=== PATIENT | female | born 1970 | race Caucasian/White ===

== ENCOUNTER 2016-06-19 09:28 | Observation (INO) | payer BC ==
[2016-06-17 10:24] VITALS: BMI 28.3
--- NOTE | 2016-06-19 06:15 | HP ---
DATE OF ADMISSION: Chief complaint is severe nasal stuffiness. HISTORY OF PRESENT ILLNESS: This patient is a pleasant 46-year-old female who was recently seen in my office complaining of having extreme difficulty breathing through her nose and snoring at night and also during the day time. In addition to this, the patient has a history of asthma. She states that she has had asthma since she was approximately 18 years ago. She is not so much concerned about snoring but mainly is concerned about the fact that it is difficult for her to breathe during the day and even at night. She has a history of allergic rhinitis and is currently on Singulair and Autumn, but this does not seem to help with the nasal stuffiness. She denies any use of rumi-osb-kptwvkg nasal spray such as Afrin or Gama-Synephrine. At the time that she was seen in my office, clinical examination of the nose revealed the patient had severe nasal septal deviation to the left with bilateral compensatory hypertrophy of the inferior turbinates, hypertrophy of the maxillary crest, deformity of the perpendicular plate of the ethmoid bone and there was noted to be a vomerine spur noted posteriorly on the left side. All of these factors contribute to significant bilateral obstruction. It was recommended that the patient undergo a Kimmy septoplasty with bilateral partial resection of the inferior turbinates under general anesthesia and she will be placed in the hospital for 23-hours hopefully in the observation unit. Past medical history reveals she has no known allergies to medications. Previous surgeries include removal of various skin tags and moles from her skin, D&C and C-sections. She is 4 para, ( ) , 1 miscarriage, 1 . She has also had extraction of wisdom teeth and a D&C. There is no history of asthma, diabetes mellitus, or hypertension. Review of systems is completely unremarkable. PHYSICAL EXAMINATION: This patient is a very pleasant 46-year-old female who is somewhat anxious but is alert and cooperative. HEENT EXAMINATION: Patient is normocephalic. Tympanic membranes are normal. Middle ear spaces are free of any fluid or infection. Pupils equal, round, and reactive to light and accommodation. Extraocular movements are within normal limits. Intranasal examination is as described above with severe nasal septal deviation, hypertrophy of the maxillary crest, bilateral hypertrophy of the inferior turbinates, deformity of the perpendicular plate of the ethmoid bone and vomerine spur noted posteriorly. Examination of oropharynx, palpation of the neck, cranial nerves 2 through 12 and remainder of the head and neck exam is unremarkable. CHEST/CARDIOVASCULAR: Both lung mortensen are clear to percussion and auscultation. Patient is in regular sinus rhythm. S1 and S2 are present without any murmurs, S3s or S4s. Peripheral pulses are bilaterally symmetrical and within normal limits. ABDOMEN: There is no evidence of any masses, megaly or tenderness. The abdomen is soft. Skin is unremarkable. Musculoskeletal and neurological are within normal limits. PELVIC/RECTAL EXAM: The pelvic/rectal exam is deferred at this time because the patient has this done on a regular basis at her family physician's office. The remainder of the physical exam is essentially unremarkable. IMPRESSION: Severe nasal septal deviation with severe bilateral hypertrophy of inferior turbinates. PLAN: The patient is scheduled to undergo [place] septoplasty with bilateral partial resection of the inferior turbinates under general anesthesia. ATTENTION RNS IN THE PRESURGICAL AREA: The only presurgical prophylactic antibiotics that I have ordered are 2 grams of Ancef IV to be given once an intravenous line has been established. If any other prophylactic antibiotics have been ordered in my name, they should be canceled, returned to pharmacy, and the patient's account should be credited appropriately. Again, the only prophylactic antibiotics that I wish this patient to receive is 2 grams of Ancef IV in the presurgical area. In addition to this, I have ordered 1000 mg of Ofirmev IV, again to be given in the presurgical area once an intravenous line has been established. These are the only 2 presurgical medications that I have ordered. I have explained the operation/procedure to the patient, including the risks, benefits, side effects, alternative therapies (including not receiving the proposed treatment or service), the likelihood of the patient achieving his/her goals, and potential recuperation problems for the procedure/sedation/analgesia, as well as any blood products, if indicated. I also explained to the patient the risks, benefits, and side effects of the alternatives, as well as the risks related to not receiving the proposed procedure, care treatment or services.
--- NOTE | 2016-06-19 06:44 | DS ---
DATE OF ADMISSION: 06/19/2016 DATE OF DISCHARGE: POSTOPERATIVE DISCHARGE INSTRUCTION SHEET 1. Please read/review all discharge instructions. 2. You may resume most normal light activities (however avoid any exercising such as running, cycling , etc.), a normal diet, and you may resume all presurgical medications except aspirin and Coumadin. Therefore, you may resume all of your medications such as, Advil, ibuprofen, Aleve, Motrin, asthma inhalers, atorvastatin, Wellbutrin XL, etc. You may also shower, shampoo your hair, and take baths as usual. Please avoid trying to blow your nose at all cost, doing so may cause bleeding. Instead it is best that you periodically sniff back and spit out any mucus or old dried blood that you find. Inside your nose Dr. Romero has advised you that there will be 2 plastic nasal tubes/splints that are designed to keep your septum, which was operated on, straight. As long as you periodically sniff back, you will be able to breathe through these tubes. Also if you have sneeze, you should do so with your mouth open and let the force of the sneeze come out through your mouth. Avoid all first and second hand tobacco smoke at all costs. A wood burner or fireplace is okay. It is not necessary that you run a humidifier in your home, but if you have one it is not going to hurt anything. If you should run a temperature, you may take any wrte-vpv-vogacwi pain reliever such as Tylenol, Motrin, ibuprofen, Aleve, Advil, etc. In addition to this, some patient's will experience generalized body aches/muscle aches involving the muscles of the abdomen, thighs or calves of the legs, which may occur several days after the surgery and last for several days. This discomfort will generally resolve without any type of treatment, however, you may use any gqgc-fau-eukohae pain reliever such as Tylenol, Motrin, etc. or you may take one of your prescribed pain medication tablets, [place] 5/325 mg, as prescribed. The pain, which you will experience with respect to your nose will generally be moderate unless you accidentally bump your nose. The nursing staff will give you several oval eye patches and instruct you on how to make a small mustache dressing which you may use in case you have excessive nasal drainage. Certainly you should avoid and stay off of work and away from school until your first visit with Dr. Romero and his office. Also you went to limit the number of visitors to your home because this is the middle of the flu/cold season and it would be most uncomfortable for you to strip picker a head cold during this time. As mentioned in the office, although there will be no packing in your nose, because this will be removed before you leave the hospital, there will be 2 soft plastic tubes nose and these can be uncomfortable, but they do not tend to be very painful. The bottom line is that they tend to be more annoying as opposed to being actual painful. The good news is those will be removed in my office on the day that you come to the office and it is a painless procedure and there is no bleeding associated with it. Once those are removed, you will notice the marked improvement in your breathing through both sides of your nose immediately. After those plastic tubes are removed, then we will instruct you how to irrigate your nose with a special solution 2 to 3 times daily in an effort to remove all dried blood, scabs and to promote healing. It normally takes the nose approximately 4 weeks to heal after this type of surgery. In addition to your prescription for your pain medication, [place] 5/325 mg tablets, you will also receive a prescription for oral antibiotic Omnicef capsules 300 mg and you should take this as prescribed, 2 capsules each morning, with or without food until they are completely gone. This will reduce the risk of you developing any type of sinus infection. Minor bleeding during your recovery is to be expected. Dr. Romero will be calling your home on Wednesday06/21/2016 between 3 p.m. and approximately 7 p.m. in order to talk to you about any problems or concerns you may be having after your surgery. Finally, it is very important that you drink as much fluid as you can because this will tend to help your body rid itself of all of the anesthesia medication and gases. The reason for the muscle aches after your surgery sometimes it because of one of the anesthetic agents that is given to you by the anesthesia department during your surgery, but again, these symptoms resolve without any treatment.
[~2016-06-19 09:28] MED LIST: ATORVASTATIN 20 MG TAB PO SCH; NALOXONE 0.4 MG/ML 1 ML VIAL IV PRN; Pre Op ABX Message 1 EACH MISC MISCELLANE ONE
[2016-06-19] MEDS ORDERED: LIDOCAINE 1% 20 ML VIAL (10MG/ML) FOR IV START SQ ONE (10:18)
[2016-06-19] MEDS ORDERED: MIDAZOLAM 2 MG/2 ML VIAL IV PRN (10:31)
[2016-06-19] MEDS ORDERED: SCOPOLAMINE 1.5MG/72HR PATCH TRANSDERM ONE (10:31)
[2016-06-19] MEDS ORDERED: DEXAMETHASONE SOD PHOSPHATE 10 MG/ML 1 ML VIAL IV ONE (10:31)
[2016-06-19] MEDS ORDERED: LIDOCAINE 1% 20 ML VIAL (10MG/ML) FOR IV START INTRADERMA PRN (10:31)
[2016-06-19] MEDS: ONDANSETRON 4 MG/2 ML VIAL IVP ONE ×2 (10:40→14:59)
[2016-06-19] MEDS ORDERED: LACTATED RINGERS 1,000 ML IV SCH ×2 (10:45→13:00)
[2016-06-19] MEDS ORDERED: ACETAMINOPHEN IV (For NPO) 1,000 MG in EMPTY BAG 1 BAG IVPB ONE (10:50)
[2016-06-19] MEDS: ceFAZolin 2 GM in SODIUM CHLORIDE 0.9% 100 ML IVPB ONE ×2 (11:13→11:20)
[2016-06-19] MEDS ORDERED: OXYMETAZOLINE 0.05% NASL SPRAY 15 ML MISCELLANE ONE (11:35)
[2016-06-19] MEDS ORDERED: LIDOCAINE 1%-EPI 1:100,000 20 ML VIAL SUBMUCOSAL ONE ×2 (11:36)
[2016-06-19] MEDS ORDERED: BACITRACIN 500 UNIT/GM OINT 28.4 GM TUBE TOPICAL ONE (11:36)
[2016-06-19] MEDS ORDERED: ALPRAZolam 0.5 MG TAB PO PRN (13:00)
[2016-06-19] MEDS ORDERED: PROCHLORPERAZINE 10 MG TAB PO PRN (13:00)
[2016-06-19] MEDS ORDERED: LACTATED RINGERS 1,000 ML IV ONE ×2 (13:43→16:48)
[2016-06-19] MEDS: LABETALOL SYRINGE 5 MG/ML IVP ONE ×2 (14:49→15:49)
[2016-06-19] MEDS: HYDROmorphone 1 MG/ML 1 ML SYRINGE IVP PRN ×3 (14:59→16:29)
[2016-06-19] MEDS: ENALAPRILAT 1.25 MG/ML 1 ML VIAL IVP STA ×2 (15:12→17:22)
[2016-06-19] MEDS ORDERED: ONDANSETRON 4 MG/2 ML VIAL IVP PRN ×2 (16:00→19:42)
[2016-06-19] MEDS ORDERED: hydrALAZINE HCL 20 MG/ML 1 ML VIAL IVP ONE (16:31)
[2016-06-19] MEDS: SYMBICORT 160-4.5 MCG INHALER INHALATION SCH ×2 (16:39→19:30)
[2016-06-19] MEDS: buPROPion XL 150 MG TAB.ER.24H PO SCH (17:22)
[2016-06-19] MEDS: HYDROmorphone PCA 5 MG/25 ML SYRINGE IV PRN (17:53)
[2016-06-19] MEDS: ACETAMINOPHEN IV (For NPO) 1,000 MG in EMPTY BAG 1 BAG IVPB SCH (18:49)
[2016-06-19] MEDS: ceFAZolin 2 GM in SODIUM CHLORIDE 0.9% 100 ML IVPB SCH (18:56)
[2016-06-19] MEDS ORDERED: ATORVASTATIN 20 MG TAB PO SCH (21:00)
[2016-06-19] MEDS ORDERED: TEMAZEPAM 30 MG CAP PO PRN (22:00)
[2016-06-20] MEDS: ACETAMINOPHEN IV (For NPO) 1,000 MG in EMPTY BAG 1 BAG IVPB SCH ×2 (00:09→06:40)
[2016-06-20] MEDS: ceFAZolin 2 GM in SODIUM CHLORIDE 0.9% 100 ML IVPB SCH ×2 (00:10→08:04)
[2016-06-20 07:47] VITALS: TEMP 98.3
[2016-06-20] MEDS ORDERED: HYDROcodone/APAP 5-325MG 1 EACH TAB PO PRN (07:57)
[2016-06-20] MEDS: buPROPion XL 150 MG TAB.ER.24H PO SCH (08:04)
[2016-06-20] MEDS: SYMBICORT 160-4.5 MCG INHALER INHALATION SCH (08:22)
[2016-06-20] MEDS ORDERED: DEXAMETHASONE SOD PHOS (MDV) 100 MG/10 ML VIAL ONE (11:13)
[2016-06-20] MEDS ORDERED: LIDOCAINE 1% INJ 10MG/ML (20 ML MDV) ONE (11:13)
[2016-06-20] MEDS ORDERED: PROPOFOL 10 MG/ML 20 ML VIAL IV ONE (11:13)
[2016-06-20] MEDS ORDERED: fentaNYL (PF) 50 MCG/ML 2 ML AMP ONE (11:13)
[2016-06-20] MEDS ORDERED: MIDAZOLAM 2 MG/2 ML VIAL ONE (11:13)
[2016-06-20] MEDS ORDERED: SUCCINYLCHOLINE CHLORIDE 100 MG/5 ML SYR IV ONE (11:13)
[2016-06-20 12:17] VITALS: RESP 14
[2016-06-20 12:20] VITALS: PULSE 108
[2016-06-20] MEDS: HYDROmorphone PCA 5 MG/25 ML SYRINGE IV PRN (13:04)
[2016-06-20] MEDS ORDERED: hydrALAZINE HCL 20 MG/ML 1 ML VIAL IVP STA (13:12)
[2016-06-20 15:03] VITALS: BP 160/88
--- NOTE | 2016-06-21 20:32 | OP ---
DATE OF SERVICE: 06/19/2016 SURGEON: SORAYA ROLLE MD COLOR MAKING SUPERVISOR: PREOPERATIVE DIAGNOSES: Severe nasal septal deviation with severe bilateral hypertrophy of the inferior turbinates. POSTOPERATIVE DIAGNOSES: Severe nasal septal deviation with severe bilateral hypertrophy of the inferior turbinates. OPERATION: Kimmy septoplasty with bilateral partial resection of the inferior turbinates. ANESTHESIA: General anesthesia. ESTIMATED BLOOD LOSS: Less than 75 mL. SPECIMENS REMOVED: COMPLICATIONS: None. OPERATIVE FINDINGS: DESCRIPTION OF PROCEDURE: The patient was placed on operating table in the supine position and after uneventful induction and endotracheal intubation, satisfactory general anesthesia was obtained. Next, patient's head was draped in the usual and customary fashion. Following this, both nasal chambers were packed with Cottonoids which had been saturated with Afrin nasal spray and these were placed inferior to the right and left inferior turbinates respectively to achieve maximum vasoconstriction. These cottonoids were removed after a period of approximately 5 minutes. Inspection revealed the patient had significant subluxation of the anterior cartilage off of the maxillary crest to the left, severe hypertrophy of the maxillary crest itself with the bony extensions/wings on the maxillary crest, significant deformity of the perpendicular plate of the ethmoid bone and finally a vomerine spur was noted posteriorly on the left side. Therefore the membrane portion of the septum was grasped with a columellar clamp and pulled anteriorly, thus exposing the membrane portion of the septum. Next, approximately 1 mL of 1% Xylocaine with epinephrine was infiltrated in a submucosal plane into the soft tissues of the membrane portion of the septum down to the level of the nasal spine. While waiting for the anesthetic to take effect, the nasal hairs were trimmed with a pair of angled sharp Fritz scissors. Next, again with a columellar clamp attached, the caudal end of the cartilaginous portion of the septum was identified and an incision was made approximately 4 mm anterior to the caudal end of the cartilage portion of the septum beginning at the dome of the nose working down to the floor of the nose using a #15 scalpel and cutting mucous membrane only. Next, the soft tissues were dissected off of the caudal end of the anterior cartilage of the septum thus exposing the perichondrium. The perichondrium was then sharply incised using a [place] knife. This was the beginning of the so-called superior and posterior tunnels. The construction of the nose was done by elevating in a subperichondrial plane using the left angled [place] in a sweeping motion from superior to inferior and anterior to posterior working back towards and beyond the junction of the cartilage and the perpendicular plate of the ethmoid bone, which was significantly deformed. Having done this, the McEnty sharp end of the dissector was to incise the junction between the bony and cartilaginous portion of the septum and the crossover from the left side. The original incision was a so-called hemitransfixation incision and it had purposely been made on the left side of the membrane portion of the septum. Dissection was somewhat tedious because of apparent scar tissue and because of the extent of the deformities. After sharply incising the junction of the cartilage portion of the septum and the perpendicular plate of the ethmoid bone, the [place] was used to cross over to the opposite side, that is to say, the right side and it was there then by using a sweeping motion anterior to inferior and superior posterior that the entire submucoperichondrial and was dissected off of the posterior portion of the cartilage. Next, attention was directed toward correcting the cartilaginous and bony deformities. Columella clamp was removed and instead a small nasal speculum was inserted and again inspection of the deformities were as described above. Next, mucoperichondrial was incised sharply on the caudal end of the septum which had been exposed by the hemitransfixation incision using a combination of a [place] in a sweeping motion from anterior to posterior and superior to inferior. This was done quite easily. Care was taken because there appeared to be a small amount of scar tissue noted posteriorly. The submucoperiosteal elevation was carried out on both the right and left side back as far as the rostrum of the sphenoid bone and down to the level of the floor of the nose. Next, the cartilage portion of the septum was dislocated from the maxillary crest by cutting a 4 millimeters inferior strip from the most inferior aspect of the septum. Having done this, this allowed the septum to swing nicely out of the operating field, immediately one could see that there were so-called wings that had developed on the top of the left side and the right side of the bony portion of the septum. Therefore, it was decided to create inferior tunnels and this was accomplished by placing a sharp [place] into the piriform aperture and while hugging against the maxillary crest and in a sharp advancing motion a so-called inferior tunnel was treated by dissecting from anterior to posterior. This was done on the left side of the cartilage portion of the septum and again the so-called hemitransfixion patient was on the right side. Next, having freed inferior portion of the septum/inferior maxillary crest, this allowed the cartilage portion of the septum to swing to the right quite nicely. Once again an inferior tonsil was created just lateral to the maxillary crest, beginning at the anterior part of the nose and working posteriorly to the level of the perpendicular plate of the ethmoid. Having gained all of the second exposure one could see that there was significant wings, a direct result of deformity, that were partially obstructing the patient's airway. Therefore, using a 4 mm chisel and mallet these wings were taken down off of the maxillary crest. In addition to this, a 4 mm inferior strut which had been removed from the inferior most aspect of the cartilage portion of the maxillary cartilage and was discarded. The septum had initially been from the maxillary crest by sharply dividing Sharpey's fibers using a Kimmy knife. Next, the deformed portion of the perpendicular plate of the ethmoid was removed centrally using a pair of double acting bone biting Kerrisons. Care was taken to leave a portion of the perpendicular plate ethmoid superiorly and inferiorly. Next, a so-called vomerine spur was noted and using a 4 mm chisel and mallet this was disimpacted and subsequently was grasped with a straight Tabitha and given a slight twist which freed up this deformed portion of the bony septum. Several small tears were created in the mucous membrane and these were not closed and it was felt that they would be allowed to remain for any drainage. Having corrected all of these deformities this allowed the septum to swing back to the midline quite nicely. Next, attention was directed towards the partial resection of the inferior turbinate. This was done in the usual fashion. Initially first the right then the left inferior turbinate were clamped with medium curved Tabitha clamps which were placed as high as far as possible on the inferior turbinates and left in place for a period of 10 minutes to achieve maximum crushing effect of the turbinates themselves. Upon removing the curved hemostats, the portion of the turbinate to be resected was delineated by the crushed portion. Therefore, using a pair of double acting turbinectomy scissors, initially the right inferior turbinate was partially resected and subsequently the left underwent the same procedure that is to say, using the double acting bone biting turbinectomy scissors, the crushed portion of the inferior turbinate was removed. Having done this, this gave the patient an excellent airway. Furthermore, I also outfractured the remnant of the inferior turbinate bones on the right and left side. Hemostasis was obtained by combination of electrocautery and also a hemostatic powder which was sprayed into the patient's nose. One final inspection revealed the patient had achieved an excellent nasal airway, the so-called hemitransfixion incision was closed using a single 4-0 chromic suture in a running fashion. Next two 8 cm Xomed nasal Silastic nasal splints were placed in the right and left nasal chamber respectively along the floor of the nose. These were sewn to the membrane portion of the septum using a 3-0 silk suture on a straight George needle. Next, a pair of Merocel nasal tampons were inserted into the right and left nasal chambers respectively just lateral to the nasal splints. All of these insertions went on without any significant difficulty due to the patient's excellent airway now. At this point, the procedure was terminated. There were no intraoperative complications. Estimated blood loss less than 75 mL. Patient tolerated the procedure well and was returned to recovery room in satisfactory condition.
== END 2016-06-20 15:10 | disposition home or self-care (01) ==
LOC: OR 09:28 → 3OBS 16:14 → OR 19:54 → 3OBS 19:54
PROVIDERS: ADMIT Otolaryngology; ATTEND Otolaryngology
DX: J34.2 Deviated nasal septum (principal); J34.3 Hypertrophy of nasal turbinates; J30.9 Allergic rhinitis, unspecified
CPT/HCPCS: 94640; 94760; 81025; 30520; 30130 ×2; G0378 ×2; J2250; J0360 ×2; J1100 ×2; J0690 ×2; J2405; J2001; J3010; J1170 ×3; J0131; J0330; J2704; 96365; 96366; 96375

== ENCOUNTER → 2016-10-09 | Outpatient (CLI) | payer OTHER ==
--- NOTE | 2016-10-09 12:51 | CT ---
EXAMINATION TYPE: CT sinus wo con DATE OF EXAM: 10/09/2016 COMPARISON: NONE HISTORY: Patient complains of recurrent sinus infections and no sinus drainage since deviated septum surgery in June 2016. CT DLP: 673.[address] of the paranasal sinuses was performed in the axial and coronal planes. Bone and soft tissue settings are submitted. The paranasal sinuses demonstrate normal aeration and development. Postsurgical changes of left-sided medial maxillary antrectomy. Mucosal thickening is noted to involve the bilateral maxillary sinuses. Total thickening of the vario us ethmoid air cells. Partial ethmoidectomy changes suggested. Frontal sinuses are well aerated as is the sphenoid sinus. The osteal meatal units are patent bilaterally. The nasal septum is midline. No bony destructive changes are seen within the field of view. IMPRESSION: Chronic maxillary and ethmoidal sinusitis.
== END | disposition home or self-care (01) ==
LOC: RADCTMAIN 12:13
PROVIDERS: ATTEND Otolaryngology
DX: J32.0 Chronic maxillary sinusitis (principal); J32.2 Chronic ethmoidal sinusitis
CPT/HCPCS: 70486

== ENCOUNTER → 2018-03-09 | Outpatient (CLI) | payer OTHER ==
--- NOTE | 2018-03-09 12:59 | XR ---
EXAMINATION TYPE: XR chest 2V DATE OF EXAM: 03/09/2018 COMPARISON: NONE HISTORY: Dyspnea TECHNIQUE: Frontal and lateral views of the chest are obtained. FINDINGS: There is no focal air space opacity, pleural effusion, or pneumothorax seen. The cardiac silhouette size is within normal limits. The osseous structures are intact. There is bronchial wall thickening. IMPRESSION: Correlate for bronchitis, reactive airways disease. Follow-up as indicated.
== END | disposition home or self-care (01) ==
LOC: RADXRYALE 11:03
PROVIDERS: ATTEND Physician Assistant
DX: R06.00 Dyspnea, unspecified (principal)
CPT/HCPCS: 71046

== ENCOUNTER → 2018-09-20 | Outpatient (CLI) | payer BC ==
[2018-09-20 10:06] VITALS: BP 157/94; PULSE 52; RESP 20; TEMP 97.9; BMI 29.9
--- NOTE | 2018-09-20 10:52 | P.HPOB ---
History of Present Illness H&P Date: 09/20/18 Chief Complaint: The patient is here for her routine gynecologic exam and ma mmogram. This is a 48-year-old 113 with an LMP of 07/02/2018. She is status post tubal ligation. The patient is here to establish with this office. She states it has been about 10 years since her last pelvic exam. Her menstrual periods have become slightly irregular this past year. They have been about every 3 to 8 weeks. Currently, this is the longest she has gone without a period, about 11 weeks. She has occasional mild hot flashes. Review of Systems She is getting about 10 pounds over the last year. Respiratory: occasional asthma symptoms. She denies cardiac or G.I. problems. Past Medical History Past Medical History: Asthma, Hyperlipidemia Additional Past Medical History / Comment(s): SEASONAL ALLERGIES,. INDUCED CARDIOMYOPATHY 2007- TOTALLY RESOLVED. Chronic sinus problems. PAST PRODUCTION CONTROL EXPEDITER HISTORY: She has no history of STDs. One previous ectopic treated with methotrexate. Her last was delivered at 28 weeks because of maternal cardiomyopathy. PI with 2 pregnancies. History of Any Multi-Drug Resistant Organisms: None Reported Past Surgical History: Section, Tubal Ligation Additional Past Surgical History / Comment(s): D & C, ORAL SX UNDER ANESTHESIA. Nasal/sinus surgery. 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 - Past Family History Mother Family Medical History: No Reported History Additional Family Medical History / Comment(s): Maternal great aunt may have had breast cancer. Father Family Medical History: Hypertension Medications and Allergies Home Medications Medication Instructions Recorded Confirmed Type Atorvastatin [Lipitor] 40 mg PO DAILY 06/17/16 09/20/18 History Budesonide-Formot 160-4.5 Mcg 2 puff INHALATION RT-BID 06/17/16 09/20/18 History [Symbicort 160-4.5 Mcg Inhaler] Fexofenadine HCl [Autumn Allergy] 180 mg PO HS 06/17/16 09/20/18 History Ergocalciferol (Vitamin D2) 50,000 unit PO WEEKLY 05/14/19 05/14/19 History [Vitamin D2] Multivit with Calcium,Iron,Min 1 each PO 09/20/18 History [Women's Multivitamin] Allergies Allergy/AdvReac Type Severity Reaction Status Date / Time No Known Allergies Allergy Verified 09/20/18 09:47 Exam Vital Signs Temp Pulse Resp BP Pulse Ox 09/20/18 09:52 97.9 F 52 L 20 157/94 100 Intake and Output 09/19/18 09/20/18 09/20/18 22:59 06:59 14:59 Other: Weight 81.789 kg Height 5'5", weight 180 pounds, BMI 3.0. This is a well-developed well-nourished heavyset white female who is alert and oriented times 3 in no acute distress. HEENT: Within normal limits. NECK: Supple without mass or thyromegaly. CHEST AND LUNGS: Clear to auscultation. HEART: Regular rate and rhythm. BREASTS: Are without mass or discharge. AXILLARY EXAM: Negative for adenopathy. BACK: Negative for CVA tenderness. ABDOMEN: Soft, mildly obese, nontender, without palpable masses. PELVIC EXAM: Normal external genitalia. Cervix and vagina appear normal. There is no unusual discharge. There is no evidence of prolapse. The uterus is midposition, nongravid size and nontender. There are no palpable adnexal masses or tenderness. RECTAL EXAM: negative for mass or tenderness and is negative for occult blood. EXTREMITIES: Nontender. IMPRESSION: 1. 48-year-old female with one year of slight menstrual irregularity, probable perimenopause. 2. Normal gynecologic exam. 3. Elevated blood pressure. PLAN: 1. Pap smear was performed. 2. Self breast awareness was discussed with the patient. 3. Screening mammogram will be done today. 4. Osteoporosis prevention was discussed. I have stressed the importance of adequate calcium, vitamin D and regular exercise. Recommended amounts of calcium and vitamin D were also discussed. 5. She is aware of her blood pressure elevation today. I have recommended that she have her blood pressure checked on a regular basis and I have recommended that she check her own blood pressure on a regular basis. She will follow-up with her primary care provider for blood pressure elevations. 6.She was advised to return in one year for her annual well woman exam.
--- NOTE | 2018-09-20 13:08 | MM ---
Reason for exam: screening (asymptomatic). Baseline mammogram. History: Took hormonal contraceptives for 6 years. Physical Findings: Dr. Alvarez did breast exam. MG 3D Screening Mammo W/Cad Bilateral CC and MLO view(s) were taken. The breast tissue is heterogeneously dense. This may lower the sensitivity of mammography. No suspicious abnormality on the right breast. Left central middle depth asymmetry. These results were verbally communicated with the patient and result sheet given to the patient on 09/20/18. ASSESSMENT: Incomplete: need additional imaging evaluation, BI-RAD 0 RECOMMENDATION: Special view mammogram of the left breast.
--- NOTE | 2018-09-20 13:09 | MM ---
Reason for exam: additional evaluation requested from abnormal screening. History: Took hormonal contraceptives for 6 years. Physical Findings: Breast exam preformed at baseline screening. MG 3D Work Up W/Cad LT Spot compression CC view(s) were taken of the left breast. The breast tissue is heterogeneously dense. This may lower the sensitivity of mammography. The previously seen abnormality resolves on additional views and appears as fibroglandular tissue compatible with summation. There is no discrete abnormality. These results were verbally communicated with the patient and result sheet given to the patient on 09/20/18. ASSESSMENT: Negative, BI-RAD 1 RECOMMENDATION: Return to routine screening mammogram schedule for both breasts.
== END | disposition home or self-care (01) ==
LOC: WWCWWP 09:33
PROVIDERS: ATTEND Obstetrics & Gynecology
DX: Z12.31 Encounter for screening mammogram for malignant neoplasm of breast (principal); R92.8 Other abnormal and inconclusive findings on diagnostic imaging of breast
CPT/HCPCS: 77061; 77063; 77065; 77067

== ENCOUNTER → 2022-12-22 | Outpatient (CLI) | payer OTHER ==
--- NOTE | 2022-12-22 09:10 | US ---
EXAMINATION TYPE: US kidneys/renal and bladder DATE OF EXAM: 12/22/2022 COMPARISON: NONE CLINICAL INDICATION: Female, 52 years old with history of N17.9 KID FAILURE; CKD by bloodwork in September EXAM MEASUREMENTS: Right Kidney: 10.7x4.6x6.0 cm Left Kidney: 10.4x5.6x4.8 cm Right Kidney: dominant cyst at superior pole, difficult to appreciate: 2.6x2.7x2.7cm Left Kidney: wnl Bladder: wnl Bilateral Jets seen: Yes No nephrolithiasis or hydronephrosis. Dominant right renal superior pole simple cyst measuring up to 2.7 cm. No solid mass identified. Corticomedullary differentiation is maintained bilaterally. The uri nary bladder is anechoic. Bilateral ureteral jets are seen. Increased echogenicity of the visualized liver. technically challenging exam due to limited scanning windows IMPRESSION: 1. No hydronephrosis or nephrolithiasis. 2. Right renal simple cyst. 3. Findings suggestive of hepatic steatosis.
== END | disposition home or self-care (01) ==
LOC: RADUSWWP 08:23
PROVIDERS: ATTEND Family Medicine
DX: I12.9 Hypertensive chronic kidney disease with stage 1 through stage 4 chronic kidney disease, or unspecified chronic kidney disease (principal); N28.1 Cyst of kidney, acquired; N17.9 Acute kidney failure, unspecified; N18.9 Chronic kidney disease, unspecified; E83.52 Hypercalcemia
CPT/HCPCS: 76770

== ENCOUNTER → 2023-03-10 | Outpatient (CLI) | payer OTHER ==
[2023-03-10 12:31] VITALS: BP 148/89; PULSE 76; RESP 17; TEMP 98.3
--- NOTE | 2023-03-10 13:03 | P.HPOB ---
History of Present Illness H&P Date: 03/10/23 Chief Complaint: The patient is here for her routine gynecologic exam. This is a 52-year-old 0113 with an LMP of 2020. The patient is here to reestablish with this office. She was last seen here in 2019. She states her menstrual periods stopped in 2020. She did have hot flashes at that time and those have improved. She is without gynecologic complaints. She denies any postmenopausal bleeding. Review of Systems She has lost about 9 pounds over the past 4 years. She denies respiratory, cardiac, or GI problems. Past Medical History Past Medical History: Asthma, Hyperlipidemia, Hypertension, Renal Disease Additional Past Medical History / Comment(s): Chronic kidney disease. SEASONAL ALLERGIES, INDUCED CARDIOMYOPATHY 2007- TOTALLY RESOLVED. Chronic sin us problems. PAST DISTRICT MANAGER PRIMARY CARE SALES HISTORY: She has no history of STDs. One previous ectopic treated with methotrexate. Her last was delivered at 28 weeks because of maternal cardiomyopathy. PIH with 2 pregnancies. History of Any Multi-Drug Resistant Organisms: None Reported Past Surgical History: Section, Tubal Ligation Additional Past Surgical History / Comment(s): D & C, ORAL SX UNDER ANESTHESIA. Nasal/sinus surgery. 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 She has 2 autistic children and this has been stressful for her. - Past Family History Mother Family Medical History: No Reported History Additional Family Medical History / Comment(s): Maternal great aunt may have had breast cancer. Father Family Medical History: Hypertension Son(s) Additional Family Medical History / Comment(s): Autism. Daughter(s) Additional Family Medical History / Comment(s): Autism. Medications and Allergies Home Medications Medication Instructions Recorded Confirmed Type Budesonide-Formot 160-4.5 Mcg 2 puff INHALATION RT-BID 06/17/16 03/10/23 History [Symbicort 160-4.5 Mcg Inhaler] Fexofenadine HCl [Autumn Allergy] 180 mg PO HS 06/17/16 03/10/23 History Rosuvastatin [Crestor] 10 mg PO DAILY 03/10/23 03/10/23 History buPROPion SR [Wellbutrin SR] 150 mg PO DAILY 03/10/23 03/10/23 History traZODone HCL [Desyrel] 50 mg PO DIRECTED PRN 03/10/23 03/10/23 History Allergies Allergy/AdvReac Type Severity Reaction Status Date / Time No Known Allergies Allergy Verified 09/20/18 09:47 Exam Vital Signs Temp Pulse Resp BP Pulse Ox 03/10/23 12:03 98.3 F 76 17 148/89 97 Intake and Output 03/09/23 03/10/23 03/10/23 22:59 06:59 14:59 Other: Weight 77.564 kg Height 5 feet 5 inches, weight 171 pounds, BMI 28.5. This is a well-developed well-nourished white female who is alert and oriented times 3 in no acute distress. HEENT: Within normal limits. NECK: Supple without mass or thyromegaly. CHEST AND LUNGS: Clear to auscultation. HEART: Regular rate and rhythm. BREASTS: Are without mass or discharge. AXILLARY EXAM: Negative for adenopathy. BACK: Negative for CVA tenderness. ABDOMEN: Soft, nontender, without palpable masses. PELVIC EXAM: Normal external genitalia with minimal atrophy. Cervix and vagina appear normal with minimal atrophy. There is no unusual discharge. There is no evidence of prolapse. The uterus is midposition, nongravid size and nontender. There are no palpable adnexal masses or tenderness. RECTAL EXAM: Rectovaginal exam is negative for mass or tenderness and is negative for occult blood. EXTREMITIES: Nontender. IMPRESSION: 1. 52-year-old menopausal female with normal gynecologic exam. 2. Elevated blood pressure. PLAN: 1. Pap smear cotest was performed. 2. Self breast awareness was discussed with the patient. We have also discussed symptoms associated with inflammatory breast cancer. 3. Screening mammogram is due. The patient states she has an appointment later this month. The order slip was given to the patient for this. 4. Osteoporosis prevention was discussed. She states she is currently undergoing a workup for an elevated serum calcium level. She was told to discontinue calcium and vitamin D. She will further discuss the recommendations for calcium intake with the doctor managing her serum calcium levels. 5. She is aware of her elevated blood pressure. She states she was told to discontinue her blood pressure medication. She will check her own blood pressures at home on a regular basis and follow up with her PCP regarding blood pressure elevations. 6. She will discuss the need for colonoscopies with her PCP. She understands that we'll rectal cancer screening is generally recommended at her age. 7. She was advised to return in one year for her annual well woman exam.
== END ==
LOC: WWCWWP 11:29
PROVIDERS: ATTEND Obstetrics & Gynecology
DX: R03.0 Elevated blood-pressure reading, without diagnosis of hypertension (principal); I42.9 Cardiomyopathy, unspecified; F41.9 Anxiety disorder, unspecified; E78.5 Hyperlipidemia, unspecified; I12.9 Hypertensive chronic kidney disease with stage 1 through stage 4 chronic kidney disease, or unspecified chronic kidney disease; N18.9 Chronic kidney disease, unspecified; J45.909 Unspecified asthma, uncomplicated; Z79.51 Long term (current) use of inhaled steroids; Z78.0 Asymptomatic menopausal state; Z79.899 Other long term (current) drug therapy; Z87.59 Personal history of other complications of pregnancy, childbirth and the puerperium

== ENCOUNTER → 2023-03-26 | Outpatient (CLI) | payer OTHER ==
--- NOTE | 2023-03-29 09:19 | NM ---
EXAMINATION TYPE: NM parathyroid w/spect DATE OF EXAM: 03/26/2023 COMPARISON: NONE CLINICAL INDICATION: Female, 52 years old with history of E83.52 HYPERCALCEMIA; TECHNIQUE: Following administration of 25.2 mCi Tc99m Sestamibi. Anterior projection images of the neck and ches t were obtained 15 minutes and 3 hours post injection. SPECT images of the neck and chest were obtai mary and reconstructed in three axes. FINDINGS: Thyroid tracer washout: Delayed images demonstrate near-complete tracer washout from the thyroid. Parathyroid uptake: None. The two-hour delayed images do not demonstrate any focal abnormal persisten t uptake in the region of the parathyroid glands to suggest parathyroid adenoma. Normal uptake: There is physiological tracer uptake in the myocardium, liver, salivary glands, and th yroid gland. IMPRESSION: Normal parathyroid imaging study. No evidence for mediastinal uptake to suggest mediastinal parathyro id adenoma
== END | disposition home or self-care (01) ==
LOC: RADNMMAIN 10:16
PROVIDERS: ATTEND Internal Medicine
DX: E83.52 Hypercalcemia (principal)
CPT/HCPCS: 78071; A9500

== ENCOUNTER → 2023-04-02 | Outpatient (CLI) | payer OTHER ==
--- NOTE | 2023-04-05 07:42 | MM ---
Reason for Exam: Screening (asymptomatic). Last mammogram was performed 4 year(s) and 6 month(s) ago. Patient History: Menarche at age 12. First Full-Term at age 27. Postmenopausal. Patient used Hormonal Contraceptives for 6 years. Risk Values: Sol 5 year model risk: 1.2%. NCI Lifetime model risk: 9.6%. Prior Study Comparison: 09/20/2018 Left Diagnostic Mammogram, [facility]. 09/20/2018 Bilateral Screening Mammogram, [facility]. Tissue Density: The breast tissue is heterogeneously dense. This may lower the sensitivity of mammography. Findings: Analyzed By CAD. There is no suspicious group of microcalcifications or new suspicious mass. Overall Assessment: Negative, BI-RAD 1 Management: Screening Mammogram of both breasts in [address] [facility] will attempt to contact patient to return for supplemental views and ultrasound if indicated. Patient should continue monthly self-breast exams. A clinical breast exam by your physician is recommended on an annual basis. This exam should not preclude additional follow-up of suspicious palpable abnormalities. Note on Sol scores and lifetime risk: 1. A Sol score greater than 3% is considered moderate risk. If this is the case, consider specialist referral to assess eligibility for a risk reducing agent. 2. If overall lifetime risk for the development of breast cancer is 20% or higher, the patient may qualify for future screening with alternating mammogram and breast MRI. Electronically signed and approved by: Ariel Arita DO
== END | disposition home or self-care (01) ==
LOC: RADMAMWWP 14:27
PROVIDERS: ATTEND Obstetrics & Gynecology
DX: Z12.31 Encounter for screening mammogram for malignant neoplasm of breast (principal); Z78.0 Asymptomatic menopausal state
CPT/HCPCS: 77063; 77067

== ENCOUNTER 2023-04-09 10:54 | Day surgery (SDC) | payer OTHER ==
[2023-04-07 12:08] VITALS: BMI 27.4
[~2023-04-09 10:54] MED LIST changes: -ATORVASTATIN 20 MG TAB PO SCH; +LACTATED RINGERS 1,000 ML IV SCH; +LIDOCAINE 1% (10MG/ML) FOR IV START INTRADERMA PRN; -NALOXONE 0.4 MG/ML 1 ML VIAL IV PRN; -Pre Op ABX Message 1 EACH MISC MISCELLANE ONE
[2023-04-09 11:45] VITALS: RESP 16; TEMP 98.3
[2023-04-09] MEDS ORDERED: PROPOFOL 10 MG/ML 20 ML VIAL IV ONE (12:13)
--- NOTE | 2023-04-09 12:33 | P.PCN ---
Date of Procedure: 04/09/23 Procedure(s) Performed: BRIEF HISTORY: Patient is a 52-year-old pleasant white male scheduled for an elective colonoscopy as a part of evaluation of positive cologuard /Screening for colon cancer PROCEDURE PERFORMED: Colonoscopy. PREOPERATIVE DIAGNOSIS: Screening for colon cancer/polyps cologuard. IV sedation per Anesthesia. PROCEDURE: After informed consent was obtained, the patient, was brought into the endoscopy unit. IV sedation was administered by Anesthesia under continuous monitoring. Digital rectal examination was normal. Initially the Olympus CF-160 flexible video colonoscope was then inserted in the rectum, gradually advanced into the cecum without any difficulty. Careful examination was performed as the scope was gradually being withdrawn. Ileocecal valve and the appendiceal orifice were visualized and appeared normal. Prep was excellent. Mucosa of the cecum, ascending colon, transverse colon, descending colon, sigmoid colon, and rectum appeared normal. Retroflexion was performed in the rectum and no lesions were seen. The patient tolerated the procedure well. IMPRESSION: Normal-appearing colon from rectum to cecum with no evidence of colorectal neoplasia. RECOMMENDATIONS: Findings of this examination were discussed with the patient .as well as a family. She was advised to have a repeat screening colonoscopy in 10 years.
[2023-04-09 13:05] VITALS: BP 136/84; PULSE 74
== END 2023-04-09 13:15 | disposition home or self-care (01) ==
LOC: ORWHC2ENDO 10:54
PROVIDERS: ATTEND Internal Medicine Gastroenterology
DX: Z12.11 Encounter for screening for malignant neoplasm of colon (principal); R19.5 Other fecal abnormalities; I11.0 Hypertensive heart disease with heart failure; E78.5 Hyperlipidemia, unspecified; J45.909 Unspecified asthma, uncomplicated; F17.200 Nicotine dependence, unspecified, uncomplicated; F41.9 Anxiety disorder, unspecified; Z88.0 Allergy status to penicillin; Z88.1 Allergy status to other antibiotic agents; Z91.048 Other nonmedicinal substance allergy status; Z79.51 Long term (current) use of inhaled steroids; Z79.899 Other long term (current) drug therapy
CPT/HCPCS: 45378; J2704

== ENCOUNTER → 2023-05-05 | Outpatient (CLI) | payer OTHER ==
--- NOTE | 2023-05-06 14:14 | BD ---
EXAMINATION TYPE: Axial Bone Density DATE OF EXAM: 05/05/2023 CLINICAL HISTORY: 52 years old Female. ICD-10 CODE: E55.9 VITAMIN D DEFIC M85.9DISORDER OF BONE DENS IT Height: Weight: FRAX RISK QUESTIONS: Family History (Parent hip fracture): no History of Fracture in Adulthood: no Secondary Osteoporosis: yes 5. Chronic liver disease: yes RISK FACTORS HISTORY OF: Family History of Osteoporosis: no Active: yes Diet low in dairy products/other sources of calcium: yes Postmenopausal woman: no Lost more than 2 inches in height since high school: no Frequent falls: no Poor Health: no Hyperparathyroidism: no Adrenal Insufficiency: no MEDICATIONS: Additional Medications: yes mood stabilizer, sleep aid EXAM MEASUREMENTS: Bone mineral densitometry was performed using the Club W System. Bone mineral density as measured about the Lumbar spine is: ----- L1-L4(G/cm2): 1.143 T Score Values are as follows: ----- L1: -0.3 ----- L2: 0.4 ----- L3: -0.6 ----- L4: -0.8 ----- L1-L4: -0.3 Z Score Values are as follows: ----- L1: 0.0 ----- L2: 0.7 ----- L3: -0.3 ----- L4: -0.5 ----- L1-L4: 0.0 Bone mineral density baseline Bone mineral density about the R hip (g/cm2): 0.998 Bone mineral density about the L hip (g/cm2): 1.004 T Score values are as follows: -----R Neck: -0.5 -----L Neck: -1.0 -----R Total: -0.1 -----L Total: 0.0 Z Score values are as follows: -----R Neck: 0.2 -----L Neck: -0.3 -----R Total: 0.3 -----L Total: 0.3 Bone mineral density baseline FRAX%s: The graph provided illustrates a 4.9% chance for a major osteoporotic fx and a 0.2% chance fo r the hips probability for fx in 10 years time. IMPRESSION: Normal (Values between +1 and -1 indicate normal bone mass). Note that measurements are bordering on osteopenia at the left hip. Consider repeating this study in 5 years or sooner if there is some new clinical indication. NOTE: T-SCORE=SD OF THE YOUNG ADULT MEAN.
== END | disposition home or self-care (01) ==
LOC: RADBDWWP 14:44
PROVIDERS: ATTEND Family Medicine
DX: M85.9 Disorder of bone density and structure, unspecified (principal); E55.9 Vitamin D deficiency, unspecified
CPT/HCPCS: 77080

== ENCOUNTER → 2023-09-30 | Outpatient (CLI) | payer BC ==
--- NOTE | 2023-09-30 10:44 | MR ---
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 TECHNIQUE: Multi planar, multi sequence imaging was performed through the brain including: T1, T2, In version recovery, Diffusion weighted imaging, and gradient echo imaging. No gadolinium was given. FINDINGS: The cornelius-white junctions, ventricular system, basal cisterns appear unremarkable. Normal scattered foci of high T2 signal intensity are seen within the periventricular white matter. Midline structures show no abnormality. Diffusion-weighted imaging shows no evidence of restricted diffusion. The susce ptibility weighted images do not reveal any evidence for micro-hemorrhage. The bone marrow signal is within normal limits. Paranasal sinuses and mastoid air cells: Mild scattered paranasal sinus disease. Visualized orbits: Orbital contents are intact. IMPRESSION: 1. No evidence of intracranial mass or acute/subacute infarct. 2. Minimal Nonspecific white matter changes, likely secondary to small vessel ischemic disease.
== END | disposition home or self-care (01) ==
LOC: RADMRIMAIN 09:34
PROVIDERS: ATTEND Psychiatry & Neurology Neurology
DX: G93.89 Other specified disorders of brain (principal); Z87.448 Personal history of other diseases of urinary system
CPT/HCPCS: 70551

== ENCOUNTER → 2024-08-17 | Outpatient (CLI) | payer BC ==
--- NOTE | 2024-08-17 12:25 | XR ---
EXAMINATION TYPE: XR knee complete RT DATE OF EXAM: 08/17/2024 11:52 AM COMPARISON: None. CLINICAL INDICATION: Female, 54 years old with history of [id number] RT KNEE PAIN, pain and swelling medi al proximal TECHNIQUE: 3 view(s) obtained. FINDINGS: No acute displaced fracture or dislocation is evident. There is a very subtle lucency along the superior margin of the patella. If there is pain at this lev el nondisplaced fracture is not entirely excluded. No suspicious abnormality is along the medial aspect of the knee where the patient complains of pain. Joint spaces are preserved. No joint effusion is identified. Follow up exams can be performed 7-10 days from acute trauma. IMPRESSION: 1. Subtle lucency along the superior margin of the patella. Correlate for pain at this level. 2. Displaced fractures are not otherwise evident. [facility], , 08/17/2024 12:22 PM
== END | disposition home or self-care (01) ==
LOC: RADXRYALE 11:42
PROVIDERS: ATTEND Physician Assistant
DX: S82.001A Unspecified fracture of right patella, initial encounter for closed fracture (principal)